=== PATIENT | male | born 1970 | race African-American/Black ===

== ENCOUNTER 2017-10-12 17:48 | Inpatient (IN) | payer MEDICARE, MEDICAID ==
[~2017-10-12] VITALS: Ht 182.9 cm; Wt 86.6 kg
[2017-10-12] MEDS ORDERED: ONDANSETRON HCL 4 MG/2 ML VIAL IV ONE (19:30)
[2017-10-12] MEDS ORDERED: MORPHINE SULFATE 4 MG/ML SYR/VIAL IV ONE (19:30)
[2017-10-12] MEDS: SODIUM CHLORIDE 0.9% 1,000 ML IV SCH (19:41)
[2017-10-12 19:48] LABS: Hematocrit 40.5 % (41.0-53.0); Hemoglobin 13.6 g/dL (13.5-17.5); Mean Corpuscular Hemoglobin 30.6 pg (28.0-32.0); Mean Corpuscular Hgb Conc. 33.6 g/dL (32.0-36.0); Mean Corpuscular Volume 90.9 fL (80.0-100.0); Platelet Count (auto) 150 10^3/uL (140-450); Red Blood Cells 4.46 10^6/uL (4.5-5.90); Red Cell Distribution Width 15.1 % (11.8-14.3); White Blood Cell 8.6 10^3/uL (4.4-10.8)
[2017-10-12 19:55] LABS: Band Neutrophils % (manual) 0; Basophils % (manual) 0 (0.0-2.0); Blast Cells 0; Metamyelocytes % 0; Myelocytes % 0; Promyelocytes % 0; Reactive Lymphocytes 0
[2017-10-12 20:03] LABS: Alanine Aminotransferase 44 U/L (16-61); Albumin 2.1 g/dL (3.4-5.0); Alkaline Phosphatase 311 U/L (45-117); Amylase 19 U/L (25-115); Anion Gap 15 (5-15); Aspartate Aminotransferase 146 U/L (15-37); BUN/Creatinine Ratio 7.8; Bilirubin, Total 1.7 mg/dL (0.2-1.0); Blood Urea Nitrogen 4 mg/dL (7-18); Carbon Dioxide 18 mmol/L (21-32); Chloride 102 mmol/L (98-107); GFR African American 225 mL/min; GFR Non-African American 186 mL/min; Glucose 108 mg/dL (74-106); Lipase 114 U/L (73-393); Potassium 3.4 mmol/L (3.5-5.1); Sodium 135 mmol/L (136-145); Total Protein 6.4 g/dL (6.4-8.2)
[2017-10-12 20:22] LABS: Eosinophils % (manual) 1 (0-7); Lymphocytes % (manual) 21 (10.0-50.0); Monocytes % (manual) 2 (0-12)
[2017-10-12] MEDS ORDERED: IOHEXOL 300 MG/ML 100ML BOTTLE IJ ONE ×2 (20:37→21:38)
[2017-10-12] MEDS ORDERED: MEPERIDINE HCL (25 MG/ML) 1ML VIAL IV ONE (20:45)
[2017-10-12] MEDS ORDERED: GASTROGRAFIN 30 ML SOL ONE (20:47)
[2017-10-12] MEDS ORDERED: cefTRIAXone 1GM/10ml IVPUSH 10 ML IV ONE (23:15)
[2017-10-12] MEDS ORDERED: MEPERIDINE HCL (50 MG/ML) 1 ML VIAL IV ONE (23:15)
[2017-10-12] MEDS ORDERED: metroNIDAZOLE 500MG/100ML 100 ML IV ONE ×2 (23:30)
[2017-10-13] MEDS ORDERED: PROMETHAZINE HCL 25 MG/ML 1ML IV ONE
[2017-10-13] MEDS ORDERED: SODIUM CHLORIDE 0.9% 500 ML IV ONE (03:00)
[2017-10-13] MEDS ORDERED: HYDROcodone-ACET 5/325MG TAB PO PRN (03:00)
[2017-10-13] MEDS ORDERED: ACETAMINOPHEN 325 MG TAB PO PRN (03:00)
[2017-10-13] MEDS ORDERED: MORPHINE SULFATE 4 MG/ML SYR/VIAL IV PRN (03:00)
[2017-10-13] MEDS ORDERED: POTASSIUM CHL 20 Meq TABLET PO ONE (03:00)
[2017-10-13] MEDS ORDERED: METOPROLOL TARTRATE 50 MG TAB PO ONE (03:00)
[2017-10-13] MEDS ORDERED: ONDANSETRON HCL 4 MG/2 ML VIAL IV PRN (03:00)
[2017-10-13] MEDS ORDERED: TEMAZEPAM 15 MG CAP PO PRN (03:00)
[2017-10-13] MEDS ORDERED: NITROGLYCERIN 0.4 MG SL TAB SL PRN (03:00)
[2017-10-13] MEDS ORDERED: PANTOPRAZOLE 40 MG/10 ML VIAL IV ONE (03:00)
[2017-10-13 03:51] LABS: Hematocrit 38.7 % (41.0-53.0); Hemoglobin 12.4 g/dL (13.5-17.5)
[2017-10-13] MEDS: MORPHINE SULFATE 4 MG/ML SYR/VIAL IV PRN ×4 (03:59→20:15)
[2017-10-13] MEDS: SODIUM CHLORIDE 0.9% 1,000 ML IV SCH ×4 (04:11→13:09)
[2017-10-13] MEDS: metroNIDAZOLE 500MG/100ML 100 ML IV SCH ×3 (06:00→21:10)
[2017-10-13] MEDS: PIPERACILLIN-TAZOB 3.375GM 100 ML IV SCH ×3 (06:30→18:03)
[2017-10-13 06:32] VITALS: BP 150/90
[2017-10-13 06:35] VITALS: BP 150/90
[2017-10-13] MEDS ORDERED: TRAM100T37 PO (06:47)
[2017-10-13 08:39] VITALS: BP 118/88
[2017-10-13 09:39] LABS: Albumin 1.9 g/dL (3.4-5.0); Bilirubin, Total 1.8 mg/dL (0.2-1.0); Hematocrit 34.9 % (41.0-53.0); Hemoglobin 11.3 g/dL (13.5-17.5); Mean Corpuscular Hemoglobin 30.2 pg (28.0-32.0); Mean Corpuscular Hgb Conc. 32.3 g/dL (32.0-36.0); Mean Corpuscular Volume 93.6 fL (80.0-100.0); Platelet Count (auto) 123 10^3/uL (140-450); Red Blood Cells 3.73 10^6/uL (4.5-5.90); Red Cell Distribution Width 15.9 % (11.8-14.3); Total Protein 5.9 g/dL (6.4-8.2)
[2017-10-13 09:45] LABS: INR 1.05 (0.9-1.15); Partial Thromboplastin Time 35.1 sec (22.64-33.71); Prothrombin Time 11.4 sec (9.37-12.3)
[2017-10-13] MEDS: METOPROLOL TARTRATE 50 MG TAB PO SCH ×2 (09:48→21:15)
[2017-10-13 09:55] LABS: Band Neutrophils % (manual) 0
[2017-10-13 09:56] LABS: Basophils % (manual) 0 (0.0-2.0); Blast Cells 0; Eosinophils % (manual) 0 (0-7); Metamyelocytes % 0; Myelocytes % 0; Promyelocytes % 0; Reactive Lymphocytes 0
[2017-10-13] MEDS: LOSARTAN POTASSIUM 50 MG TAB PO SCH (10:00)
[2017-10-13] MEDS: PANTOPRAZOLE 40 MG/10 ML VIAL IV SCH (10:10)
[2017-10-13 11:23] LABS: Lymphocytes % (manual) 14 (10.0-50.0); Monocytes % (manual) 2 (0-12)
[2017-10-13 11:54] VITALS: BP 111/79
[2017-10-13 15:38] LABS: Alcohol, Urine < 3.0 mg/dL (0-5); Amphetamine Screen, Urine NEGATIVE (NEGATIVE); Barbiturate Scree,Urine NEGATIVE (NEGATIVE); Benzodiazephine Screen, Urine NEGATIVE (NEGATIVE); Cannabinoid Screen, Urine POSITIVE (NEGATIVE); Cocaine Screen, Urine NEGATIVE (NEGATIVE); Opiate Scree,Urine POSITIVE (NEGATIVE); Phencyclidine Screen, Urine NEGATIVE (NEGATIVE)
[2017-10-13 15:41] LABS: Urine Bacteria NONE SEEN /hpf (None Seen); Urine Blood Negative /uL (Negative); Urine WBC <1 /hpf (0 - 3)
[2017-10-13 16:39] VITALS: BP 101/58
[2017-10-13 20:00] VITALS: BP 110/66
[2017-10-13] MEDS ORDERED: cefTRIAXone 1GM/10ml IVPUSH 10 ML IV SCH (22:00)
[2017-10-14] MEDS: PIPERACILLIN-TAZOB 3.375GM 100 ML IV SCH ×3 (00:27→12:04)
[2017-10-14] MEDS: SODIUM CHLORIDE 0.9% 1,000 ML IV SCH ×2 (00:27→08:23)
[2017-10-14] MEDS: MORPHINE SULFATE 4 MG/ML SYR/VIAL IV PRN ×2 (00:33→08:37)
[2017-10-14 00:35] VITALS: BP 119/90
[2017-10-14 04:31] VITALS: BP 110/69
[2017-10-14] MEDS: metroNIDAZOLE 500MG/100ML 100 ML IV SCH ×2 (05:07→13:26)
[2017-10-14 05:59] LABS: Basophils # (auto) 0.1 uL; Basophils % (auto) 0.9 % (0.0-2.0); Eosinophils # (auto) 0 uL; Eosinophils % (auto) 0.2 % (0.0-7.0); Hematocrit 31.7 % (41.0-53.0); Hemoglobin 10.4 g/dL (13.5-17.5); Lymphocytes # (auto) 2.4 uL; Lymphocytes % (auto) 17.4 % (10.0-50.0); Mean Corpuscular Hemoglobin 30.9 pg (28.0-32.0); Mean Corpuscular Hgb Conc. 32.9 g/dL (32.0-36.0); Mean Corpuscular Volume 93.8 fL (80.0-100.0); Monocytes # (auto) 0.8 uL; Monocytes % (auto) 6.1 % (0.0-12.0); Neutrophils # (auto) 10.3 uL; Neutrophils % (auto) 75.4 % (37.0-80.0); Platelet Count (auto) 100 10^3/uL (140-450); Red Blood Cells 3.38 10^6/uL (4.5-5.90); Red Cell Distribution Width 15.9 % (11.8-14.3); White Blood Cell 13.7 10^3/uL (4.4-10.8)
[2017-10-14 06:04] LABS: Albumin 1.7 g/dL (3.4-5.0); BUN/Creatinine Ratio 4.7; Bilirubin, Total 1.5 mg/dL (0.2-1.0); Calcium 7.7 mg/dL (8.5-10.1); Total Protein 5.4 g/dL (6.4-8.2)
[2017-10-14 08:00] VITALS: BP 105/69
[2017-10-14] MEDS: LOSARTAN POTASSIUM 50 MG TAB PO SCH (09:24)
[2017-10-14] MEDS: METOPROLOL TARTRATE 50 MG TAB PO SCH (09:24)
[2017-10-14] MEDS: PANTOPRAZOLE 40 MG/10 ML VIAL IV SCH (09:59)
[2017-10-14 11:07] VITALS: BP 118/67
[2017-10-14 11:50] VITALS: BP 118/67
== END 2017-10-14 14:14 | disposition home or self-care (01) | DRG 432 ==
LOC: ER 17:48 → OVERFLOW 17:49 → DOU IN ICU 10-13 06:13
PROVIDERS: ADMIT Nurse Practitioner; ATTEND Nurse Practitioner
DX: K70.31 Alcoholic cirrhosis of liver with ascites (principal); E43 Unspecified severe protein-calorie malnutrition; K65.9 Peritonitis, unspecified; K76.6 Portal hypertension; K92.1 Melena; K52.9 Noninfective gastroenteritis and colitis, unspecified; R16.1 Splenomegaly, not elsewhere classified; E78.00 Pure hypercholesterolemia, unspecified; E78.5 Hyperlipidemia, unspecified; F10.10 Alcohol abuse, uncomplicated; I10 Essential (primary) hypertension; G47.00 Insomnia, unspecified; K76.0 Fatty (change of) liver, not elsewhere classified; G89.29 Other chronic pain; M54.9 Dorsalgia, unspecified; Z72.0 Tobacco use; Z68.25 Body mass index [BMI] 25.0-25.9, adult
CPT/HCPCS: 36415; 74176; 74177; 76705; 80053; 80076; 80307; 81001; 82150; 83690; 84484; 85007; 85014; 85018; 85025; 85027; 85610; 85730; 87081; 94761; 96365; 96366; 96375; 96376; C9113; G0378; J2405; J2543; J3490